=== PATIENT | male | born 1940 | race Caucasian/White ===

== ENCOUNTER 2017-03-28 10:16 | Emergency (ER) | payer OTHER, BC ==
[~2017-03-28] VITALS: Ht 180.3 cm; Wt 72.2 kg
[2017-03-28 11:26] LABS: EOSINOPHIL (%) 2.2 % (0-5); EOSINOPHIL COUNT 0.1 K/uL (0-0.3); HEMATOCRIT 40.7 % (38.0-50.0); IMMATURE GRANULOCYTE (%) 0.3 % (0.0-0.7); INSTRUMENT ABS NEUTROPHIL CT 3.8 K/uL; LYMPHOCYTE COUNT 1.4 K/uL (1.0-2.8); MCH 33.3 PG (29.0-34.0); MCHC 33.7 G/DL (30.0-36.0); MCV 98.8 FL (86-99); MEAN PLAT.VOLUME 10.5 uM^3 (9.0-12.4); MONOCYTE (%) 8.7 % (3-12); MONOCYTE COUNT 0.5 K/uL (0-0.8); NEUTROPHIL (%) 65.2 % (45-76); NEUTROPHIL COUNT 3.8 K/uL (1.8-6.4); PLATELET COUNT 169 K/uL (156-360); RBC DIS.WIDTH-CV 14.5 % (11.8-14.6); RBC DIS.WIDTH-SD 53.1 % (39-53); RED BLOOD COUNT 4.12 M/uL (4.00-5.50); WHITE BLOOD COUNT 5.9 K/uL (4.1-10.2)
[2017-03-28 11:36] LABS: INTER. NORMALIZED RATIO 1.1; PROTHROMBIN TIME 10.8 (9.2-11.2); PTT 28.6 (25-32)
[2017-03-28 11:40] LABS: CHLORIDE 108 mEq/L (99-109); POTASSIUM 4.3 mEq/L (3.7-5.4); SODIUM 143 mEq/L (136-147)
[2017-03-28 11:42] LABS: GLUCOSE 109 mg/dL (70-99)
[2017-03-28 11:43] LABS: ANION GAP 12 MEQ/L (2-14)
[2017-03-28 11:44] LABS: ADD MIUA? NO; BILIRUBIN NEGATIVE; BLOOD NEGATIVE; COLOR STRAW ((YELLOW)); GLUCOSE (STRIP) NEGATIVE; KETONES NEGATIVE; LEUKOCYTES NEGATIVE; NITRITE NEGATIVE; PROTEIN (STRIP) NEGATIVE; SPECIFIC GRAVITY 1.008 (1.000-1.030); UCUL ADDED? NO; UROBILINOGEN 0.2 MG/DL (0.2-1.0)
[2017-03-28 11:46] LABS: GFR ESTIMATE (CALCULATED) > 59 mL/min/; UREA NITROGEN (BUN) 17 mg/dL (9-23)
[2017-03-28 11:48] LABS: TROP-I INTERPRETATION NEGATIVE; TROPONIN-I < 0.01 ng/mL (0.0-0.30)
[2017-03-28 13:15] VITALS: BP 169/109
== END 2017-03-28 13:20 ==
LOC: EME 10:16
PROVIDERS: Emergency Medicine
DX: F03.90 Unspecified dementia, unspecified severity, without behavioral disturbance, psychotic disturbance, mood disturbance, and anxiety (principal); I10 Essential (primary) hypertension; F43.20 Adjustment disorder, unspecified; E78.5 Hyperlipidemia, unspecified; Z87.891 Personal history of nicotine dependence
CPT/HCPCS: 70450; 71010; 80048; 81003; 84484; 85025; 85610; 85730; 93005; 99281; 99285

== ENCOUNTER 2017-05-11 08:35 | Emergency (ER) | payer OTHER, BC ==
[~2017-05-11] VITALS: Ht 180.3 cm; Wt 71.2 kg
[2017-05-11] MEDS ORDERED: ALLOPURINOL100 MG PO (08:49)
[2017-05-11] MEDS ORDERED: ALPHAGAN P100 DROP/5 RIGHT EYE (08:53)
[2017-05-11] MEDS ORDERED: CENTRUM SILVER1 EAC3 PO (08:54)
[2017-05-11] MEDS ORDERED: SINEMET 25-1001 EACH PO (08:54)
[2017-05-11 08:55] LABS: POINT-OF-CARE METER ID UU14100415
[2017-05-11] MEDS ORDERED: MEVACOR20 MG PO (08:55)
[2017-05-11] MEDS ORDERED: PREVACID30 MG PO (08:55)
[2017-05-11] MEDS ORDERED: KEFLEX500 MG PO (08:56)
[2017-05-11] MEDS ORDERED: SEROQUEL12.5 MG PO (08:57)
[2017-05-11] MEDS ORDERED: PROPAFENONE HC225 MG PO (08:57)
[2017-05-11] MEDS ORDERED: NUPLAZID17 MG PO (08:57)
[2017-05-11] MEDS ORDERED: EXELON1 EAC2 TD (08:58)
[2017-05-11] MEDS ORDERED: SEROQUEL50 MG PO (08:58)
[2017-05-11] MEDS ORDERED: Z-BUM113 GM TP (08:58)
[2017-05-11 09:31] LABS: EOSINOPHIL (%) 0.5 % (0-5); HEMATOCRIT 38.9 % (38.0-50.0); IMMATURE GRANULOCYTE (%) 0.5 % (0.0-0.7); INSTRUMENT ABS NEUTROPHIL CT 5.9 K/uL; LYMPHOCYTE COUNT 0.9 K/uL (1.0-2.8); MCH 31.6 PG (29.0-34.0); MCHC 33.4 G/DL (30.0-36.0); MCV 94.6 FL (86-99); MONOCYTE (%) 7.9 % (3-12); MONOCYTE COUNT 0.6 K/uL (0-0.8); NEUTROPHIL (%) 78.3 % (45-76); NEUTROPHIL COUNT 5.9 K/uL (1.8-6.4); NRBC (%) 0.3 /100 WBC (0-0); PLATELET COUNT 236 K/uL (156-360); RBC DIS.WIDTH-CV 13.5 % (11.8-14.6); RBC DIS.WIDTH-SD 46.3 % (39-53); RED BLOOD COUNT 4.11 M/uL (4.00-5.50); WHITE BLOOD COUNT 7.5 K/uL (4.1-10.2)
[2017-05-11 09:56] LABS: TROP-I INTERPRETATION NEGATIVE; TROPONIN-I < 0.01 ng/mL (0.0-0.30)
[2017-05-11 10:03] LABS: POINT-OF-CARE METER ID UU14100415
[2017-05-11 10:22] LABS: ANION GAP 9 MEQ/L (2-14); CHLORIDE 103 MEQ/L (99-109); SAMPLE HEMOLYSIS CHECK 0; SAMPLE ICTERIC CHECK 0; SAMPLE LIPEMIA CHECK 0; SODIUM 139 MEQ/L (136-147); TOTAL BILIRUBIN 0.7 MG/DL (0.0-1.0)
[2017-05-11 10:28] LABS: ALKALINE PHOSPHATASE 90 IU/L (3-129); GFR ESTIMATE (CALCULATED) > 59 mL/min/; GLUCOSE 115 mg/dL (70-99); LIPASE 39 U/L (1.0-51.0); UREA NITROGEN (BUN) 14 mg/dL (9-23)
[2017-05-11 10:29] LABS: ADD MIUA? NO; BILIRUBIN NEGATIVE; BLOOD NEGATIVE; COLOR YELLOW ((YELLOW)); GLUCOSE (STRIP) NEGATIVE; KETONES NEGATIVE; LEUKOCYTES NEGATIVE; NITRITE NEGATIVE; PROTEIN (STRIP) NEGATIVE; SPECIFIC GRAVITY 1.017 (1.000-1.030); UCUL ADDED? NO
[2017-05-11 12:20] VITALS: BP 138/84
== END 2017-05-11 12:20 | disposition home or self-care (01) ==
LOC: EME 08:35
PROVIDERS: Emergency Medicine
DX: G31.83 Neurocognitive disorder with Lewy bodies (principal); F02.80 Dementia in other diseases classified elsewhere, unspecified severity, without behavioral disturbance, psychotic disturbance, mood disturbance, and anxiety; L89.322 Pressure ulcer of left buttock, stage 2; L89.312 Pressure ulcer of right buttock, stage 2; I10 Essential (primary) hypertension; E78.5 Hyperlipidemia, unspecified; I48.91 Unspecified atrial fibrillation; Z87.891 Personal history of nicotine dependence; I44.7 Left bundle-branch block, unspecified
CPT/HCPCS: 71010; 80053; 81003; 82948; 83605; 83690; 84484; 85025; 87040; 93005; 99281; 99284